=== PATIENT | male | born 1960 | race Caucasian/White ===

== ENCOUNTER → 2017-11-20 | Outpatient (CLI) | payer BC ==
[~2017-11-20] MED LIST: CALC500C3 PO; CHOL1000 PO; COEN50CA9 PO; CZR50 PO; DPRSCR15 TOP; SIMV20TA2 PO; [UNRECOGNIZED DRUG - OTHER] PO
== END | disposition home or self-care (01) ==
LOC: C.LABPBG 09:40
PROVIDERS: ATTEND Urology
DX: N35.9 Urethral stricture, unspecified (principal)

== ENCOUNTER → 2017-11-24 | Day surgery (SDC) | payer BC, OTHER ==
--- NOTE | 2017-11-17 12:12 | DIAGNOSTIC IMAGING REPORT ---
CHEST 2 VIEWS ROUTINE CLINICAL HISTORY: N35.9 Meatal stenosis preoperative evaluation COMPARISON STUDY: 07/02/2017 FINDINGS: The bones soft tissues and hemidiaphragms are normal. The cardiomediastinal silhouette is normal. The lungs are clear. The pulmonary vasculature is normal. IMPRESSION: Negative chest. The above report was generated using voice recognition software. It may contain grammatical, syntax or spelling errors. Electronically signed by: Diaz Bonilla M.D. 11/17/2017 12:11 PM Dictated Date/Time: 11/17/2017 12:10 PM
[2017-11-17 12:19] LABS: BASO % 0.1 %; BASO ABS # 0.01 K/uL (0-0.2); EOS % 1.6 %; EOS ABS # 0.12 K/uL (0-0.5); HEMATOCRIT 44.5 % (42-52); HEMOGLOBIN 15.6 g/dL (14.0-18.0); IG# 0.03 K/uL (0.00-0.02); LYMPH % 31.8 %; LYMPH ABS # 2.36 K/uL (1.2-3.4); MEAN CELL VOLUME 84.6 fL (80-100); MEAN CORPUSCULAR HEMOGLOBIN 29.7 pg (25-34); MEAN CORPUSCULAR HGB CONC 35.1 g/dl (32-36); MEAN PLATELET VOLUME 9.2 fL (7.4-10.4); MONO % 7.2 %; MONO ABS # 0.53 K/uL (0.11-0.59); NEUT % 58.9 %; NEUT ABS # 4.36 K/uL (1.4-6.5); PLATELET COUNT 204 K/uL (130-400); RED CELL DISTRIBUTION WIDTH CV 13.6 % (11.5-14.5); RED CELL DISTRIBUTION WIDTH SD 41.7 fL (36.4-46.3); WHITE BLOOD COUNT 7.41 K/uL (4.8-10.8)
[2017-11-17 12:36] LABS: BLOOD UREA NITROGEN 15 mg/dl (7-18); CALCIUM 9.1 mg/dl (8.5-10.1); CARBON DIOXIDE 28 mmol/L (21-32); CREATININE 1.15 mg/dl (0.60-1.40); GLUCOSE 102 mg/dl (70-99); POTASSIUM 3.7 mmol/L (3.5-5.1); SODIUM 141 mmol/L (136-145)
[2017-11-17 15:16] VITALS: BMI 32.0
[~2017-11-24] VITALS: Ht 182.9 cm; Wt 108.2 kg
[~2017-11-24] MED LIST changes: +ACETAMINOPHEN 325 MG TAB PO PRN; +ATROPINE SULFATE 0.1 MG/ML 5ML SYR IV PRN; +CIPROFLOXACIN / D5W 400 MG IV SCH; +DEXAMETHASONE SOD INJ 4 MG/ML VIAL ONE; +EpHEDrine SULFATE INJ 50 MG/ML AMP IV PRN; +FENTANYL CITRATE INJ 50 MCG/1 ML 2 ML VIAL IV PRN; +FENTANYL CITRATE INJ 50 MCG/1 ML 2 ML VIAL ONE; +HYDROCODONE/ACETAMIN 5/325MG TAB PO PRN; +LACTATED RINGER'S 1000ML 1,000 ML IV SCH; +LIDOCAINE HCL 2% 2 ML VIAL (20MG/ML) ONE; +MIDAZOLAM HCL 1 MG/ML 2ML VIAL ONE; +ONDANSETRON INJ 2 MG/ML 2 ML VIAL IV PRN; +ONDANSETRON INJ 2 MG/ML 2 ML VIAL ONE; +PROPOFOL IV EMULSION 10 MG/ML 20 ML VIAL IV ONE; +SODIUM CHLORIDE 0.9% 1000ML 1,000 ML IV SCH
[2017-11-24 11:16] VITALS: BP 146/92; PULSE 70; TEMP 37.1; O2SAT 99; Ht 182.9 cm; Wt 108.2 kg
--- NOTE | 2017-11-24 12:37 | History & Physical Bridge Note ---
H&P Re-Evaluation Bridge Note: I have examined the patient, reviewed the History & Physical and in the interval since the performance of the History & Physical I have noted the following changes of clinical significance: No changes noted
--- NOTE | 2017-11-24 13:53 | [facility] Post Operative Brief Note ---
Immediate Operative Summary Operative Date Nov 24, 2017. Pre-Operative Diagnosis meatal stenosis Post-Operative Diagnosis meatal stenosis Procedure(s) Performed meatotomy, Meatoplasty; cystoscopy Surgeon Dr. Alexx Perez Boiler Tester Surgeon(s) NA Estimated Blood Loss none per surgeon Findings Consistent with Post-Op Diagnosis Specimens none per surgeon Drains None Anesthesia Type General Complication(s) none Disposition Accompanied Pt To Recover: yes Disposition: Recovery Room / PACU
--- NOTE | 2017-11-24 14:02 | [facility] Operative Report ---
Operative Report Operative Date Nov 24, 2017. Pre-Operative Diagnosis meatal stenosis Post-Operative Diagnosis meatal stenosis Procedure(s) Performed meatotomy, Meatoplasty; cystoscopy Surgeon Dr. Alexx Perez Cartridge Filler Surgeon(s) NA Estimated Blood Loss none per surgeon Specimens none per surgeon Drains None Anesthesia Type General Complication(s) none Disposition yes Recovery Room / PACU Description of Procedure The patient was identified in the preoperative holding area, appropriate informed consents reviewed and completed and the patient was transferred to the operating suite. Upon arrival he received appropriate preoperative antibiotics in the form of ciprofloxacin. Adequate general anesthesia was achieved and he was placed in supine position where he was sterilely prepped and draped in standard fashion. 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 This opening was small enough that it was very challenging to even insert 1 limb of a microhemostat. I was able to gently probe this and spread it slightly to create a big enough opening to be able to insert a limb. I then clamped along the ventral aspect of the meatus for approximately 4 mm. After crushing this tissue and devascularizing it, I incised this with iris scissors. This offered an immediate relief of obstruction and opening of the urethral meatus. I inspected the internal aspect of the meatus which revealed healthy appearing tissue without significant BXO beyond the border with the glans. I then repeated my clamping and cutting procedure to extend the opening of the urethral meatus slightly further in a ventral direction. After having an adequately opened the length of the meatus, I then inspected the lateral borders of my incised area and slightly raised flaps of urethral tissue from each side to allow mobilization of the urethra mucosa to the cut skin edge. Utilizing a 4-0 Vicryl suture, I placed a series of interrupted stitches to reapproximate the urethral mucosa to the true skin of the glans. There was excellent hemostasis, an excellent cosmetic appearance, and at excellent opening of the urethra at that time. As I felt that this adequately completed the meatotomy/meatal plasty, I then passed a flexible ureteroscope to further evaluate his urethra. Fortunately, he has no other stricture disease throughout the urethra. He has a relatively small prostate without significant obstruction. He has a healthy appearing bladder with ureteral orifices in orthotopic position, and no evidence of mucosal disease or abnormality. I performed a digital rectal examination at that time, and he has no abnormalities appreciated. He was subsequently extubated and taken to the PACU in stable condition. There were no complications. I attest to the content of the Intraoperative Record and any orders documented therein. Any exceptions are noted below.
--- NOTE | 2017-11-24 14:06 | Discharge Instructions ---
Discharge Instructions Date of Service Nov 24, 2017. 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 Instructions / Follow-Up Instructions / Follow-Up Please apply a small amount of steroid cream to the tip of the penis twice per day for the next 2 weeks. Please check the opening to be sure it is remaining patent (open) three times per day. If it appears to be closing, please gently insert the tip of a catheter (1 inch) with a liberal amount of lubricating jelly. The catheter does not need to remain inside the opening for more than about 30 seconds. This "self calibration" can be performed up to three times per day if necessary. If the opening seems to be remaining open, "self calibration" can be stopped. It is ok to re-use this catheter, please clean it with warm, soapy water between uses. Current Hospital Diet Patient's current hospital diet: Discharge Diet Recommended Diet: Regular Diet Procedures Procedures Performed: meatotomy, Meatoplasty; cystoscopy Pending Studies Studies pending at discharge: no Medical Emergencies . Who to Call and When: Medical Emergencies: If at any time you feel your situation is an emergency, please call 911 immediately. . Non-Emergent Contact Non-Emergency issues call your: Urologist Call Non-Emergent contact if: you have a fever, temperature is above 101.5, your pain is not controlled, your pain is worsening . . "Provider Documentation" section prepared by Gómez aPdilla. .
--- NOTE | 2017-11-24 14:37 | Anesthesiology Progress Note ---
Anesthesia Post Op Note Date & Time Nov 24, 2017 at 14:37 Vital Signs Pain Intensity: 0 Vital Signs Past 12 Hours Date Time Temp Pulse Resp B/P (MAP) Pulse Ox O2 Delivery O2 Flow Rate FiO2 11/24/17 14:35 66 16 118/81 99 Room Air 11/24/17 14:25 36.3 69 16 112/79 99 Room Air 11/24/17 14:15 68 16 117/83 100 Oxymask 3 11/24/17 14:05 70 16 110/83 100 Oxymask 10 11/24/17 13:56 36.2 73 16 115/83 99 Oxymask 10 11/24/17 11:16 37.1 70 18 146/92 (110) 99 Room Air Notes Mental Status: alert / awake / arousable, participated in evaluation Pt Amnestic to Procedure: Yes Nausea / Vomiting: adequately controlled Pain: adequately controlled Airway Patency, RR, SpO2: stable & adequate BP & HR: stable & adequate Hydration State: stable & adequate Anesthetic Complications: no major complications apparent
[2017-11-24 14:40] VITALS: BP 111/72; PULSE 66; TEMP 36.6; O2SAT 97
[2017-11-24 15:10] VITALS: BP 120/88; PULSE 76; TEMP 36.8; O2SAT 97
== END | disposition home or self-care (01) ==
LOC: C.ACU 10:36
PROVIDERS: ATTEND Urology
DX: Q64.33 Congenital stricture of urinary meatus (principal); I10 Essential (primary) hypertension; K21.9 Gastro-esophageal reflux disease without esophagitis; E78.5 Hyperlipidemia, unspecified; E66.9 Obesity, unspecified; Z68.32 Body mass index [BMI] 32.0-32.9, adult; Z87.442 Personal history of urinary calculi; Z90.49 Acquired absence of other specified parts of digestive tract; Z82.49 Family history of ischemic heart disease and other diseases of the circulatory system; Z80.8 Family history of malignant neoplasm of other organs or systems